=== PATIENT | female | born 1955 | race Caucasian/White ===

== ENCOUNTER 2020-02-22 16:38 | Emergency (ER) | payer MEDICARE ==
[~2020-02-22] VITALS: Ht 162 cm; Wt 50.0 kg
--- NOTE | 2020-02-22 17:13 | Diagnostic Imaging Report ---
PROCEDURE: CT head without contrast. TECHNIQUE: Multiple contiguous axial images were obtained through the brain without the use of intravenous contrast. Auto Exposure Controls were utilized during the CT exam to meet ALARA standards for radiation dose reduction. INDICATION: Dizziness, right-sided weakness, possible stroke. FINDINGS: There is some periventricular and subcortical bifrontal white matter hypodensity, relatively symmetric and likely chronic small vessel disease. There is no sulcal effacement. The basilar cisterns are patent. No findings suggestive of acute cortical edema. No evidence for elevated pressures. There is no mass or mass effect. There is some motion degradation artifact, limiting exam sensitivity but an acute-appearing abnormality is not apparent. No evidence for elevation of the intracerebral pressures. There are no abnormal extra-axial fluid collections. There is no hemorrhage. IMPRESSION: Likely chronic white matter small vessel disease. No cortical edema, hemorrhage, mass effect, hydrocephalus, or acute-appearing abnormalities. Dictated by: Dictated on workstation # [id number]
[2020-02-22 17:16] LABS: HEMATOCRIT 36 % (35-52); MEAN CORPUSCULAR HEMOGLOBIN 29 PG (25-34); MEAN CORPUSCULAR HGB CONC 34 G/DL (32-36); MEAN CORPUSCULAR VOLUME 87 FL (80-99); WHITE BLOOD COUNT 6.5 10^3/uL (4.3-11.0)
[2020-02-22 17:17] LABS: BASOPHILS % (AUTO) 0 % (0-10); EOSINOPHILS # (AUTO) 0.1 10^3/uL (0.0-0.3); EOSINOPHILS % (AUTO) 2 % (0-10); LYMPHOCYTES # (AUTO) 1.4 X 10^3 (1.0-4.0); LYMPHOCYTES % (AUTO) 22 % (12-44); MEAN PLATELET VOLUME 10.1 FL (7.4-10.4); MONOCYTES # (AUTO) 0.4 X 10^3 (0.0-1.0); MONOCYTES % (AUTO) 6 % (0-12); NEUTROPHILS # (AUTO) 4.5 X 10^3 (1.8-7.8); NEUTROPHILS % (AUTO) 69 % (42-75); PLATELET COUNT 276 10^3/uL (130-400)
--- NOTE | 2020-02-22 17:18 | Diagnostic Imaging Report ---
INDICATION: Dizziness and weakness. COMPARISON: No comparison is available. FINDINGS: There are prominent interstitial changes within the lungs. Correlate for smoking history. There is no alveolar consolidation. There is no effusion. There is no pneumothorax. Heart size and mediastinal contours appear appropriate without evidence of current failure. There is no acute or suspicious osseous abnormality evident. IMPRESSION: Apparent background features of interstitial lung disease. Correlation as a smoking history appreciated. There are no plain film findings of an acute superimposed cardiopulmonary process. Dictated by: Dictated on workstation # [id number]
[2020-02-22 17:28] LABS: ALANINE AMINOTRANSFERASE 18 U/L (0-55); ALBUMIN 4.6 GM/DL (3.2-4.5); ALKALINE PHOSPHATASE 133 U/L (40-136); BUN/CREATININE RATIO 11; CALCIUM 9.3 MG/DL (8.5-10.1); CARBON DIOXIDE 22 MMOL/L (21-32); CHLORIDE 94 MMOL/L (98-107); CREATININE SERUM 0.94 MG/DL (0.60-1.30); GFR ESTIMATED 60; GLUCOSE 147 MG/DL (70-105); POTASSIUM 3.4 MMOL/L (3.6-5.0); SODIUM 131 MMOL/L (135-145); TOTAL PROTEIN 7.1 GM/DL (6.4-8.2)
[2020-02-22 17:32] LABS: INR 0.9 (0.8-1.4); PROTHROMBIN TIME PATIENT 12.8 SEC (12.2-14.7)
--- NOTE | 2020-02-22 18:09 | ED General ---
General Chief Complaint: Neurological Problems Stated Complaint: FALL/DIZZY/STROKE SYMPTOMS Nursing Triage Note: PT HAD SOME DIZZINESS AND RIGHT SIDED WEAKNESS AFTER GETTING AN INJECTION FOR NAUSEA AT HOME FROM HER . THE SYMPTOMS HAD MOSLY RESOLVED BY THE TIME THE PT ARRIVED BY EMS. PT ONLY HAS A VERY SLIGHT RIGHT SIDE DROOPINESS UNKNOWN IF NEW OR NOT AT THIS TIME. PT ALERT AND ANSWERING ALL QUESTIONS APPROPRIATELY. Nursing Sepsis Screen: No Definite Risk Source of Information: Patient History of Present Illness Date Seen by Provider: Feb 22, 2020 Time Seen by Provider: 16:45 Initial Comments Patient is a 64-year-old female who presents with acute onset headache, dizziness, nausea and right-sided weakness. Symptom onset was 20 minutes prior to ED arrival. Patient states high pain, nausea has since resolved. On EMS arrival, the patient was noted be hypertensive 230s over 120s. Patient states she does not take any blood pressure medications and does not have a history of hypertension. Currently denies any extremity weakness loss of sensation, change in vision, only speaking or impaired K. No other acute symptoms or complaints. Patient is not on anticoagulation therapy. Timing/Duration: 1/2 Hour Severity: Moderate Modifying Factors: improves with Medication Associated Systoms: Denies Symptoms Allergies and Home Medications Allergies Coded Allergies: penicillin G (Verified Allergy, Unknown, 02/22/20) Patient Home Medication List Home Medication List Reviewed: Yes Review of Systems Review of Systems Constitutional: see HPI Respiratory: see HPI Cardiovascular: see HPI Gastrointestinal: see HPI Musculoskeletal: see HPI Skin: see HPI Psychiatric/Neurological: See HPI Hematologic/Lymphatic: See HPI Immunological/Allergic: see HPI All Other Systems Reviewed Negative Unless Noted: Yes Past Nlromun-Kwmwol-Xhgcfo Hx Past Med/Social Hx: Reviewed Nursing Past Med/Soc Hx Patient Social History Alcohol Use: Denies Use Recreational Drug Use: No Smoking Status: Never a Smoker 2nd Hand Smoke Exposure: No Recent Foreign Travel: No Contact w/Someone Who Travel: No Recent Infectious Disease Expo: No Recent Hopitalizations: No Physical Abuse: No Sexual Abuse: No Mistreated: No Fear: No Seasonal Allergies Seasonal Allergies: Yes Past Medical History Surgeries: Yes (RT KNEE SX, D & C) Orthopedic Respiratory: No Cardiac: No Neurological: No Genitourinary: No Gastrointestinal: No Musculoskeletal: No Endocrine: No HEENT: No Cancer: No Psychosocial: No Integumentary: No Blood Disorders: No Physical Exam Vital Signs Vital Signs - First Documented 02/22/20 16:45 Temp 36.2 Pulse 108 Resp 18 B/P (MAP) 216/96 (136) Pulse Ox 97 O2 Delivery Room Air Capillary Refill : Less Than 3 Seconds Height, Weight, BMI Height: '" Weight: lbs. oz. kg; 19.00 BMI Method: General Appearance: WD/WN, Anxious Eyes: Bilateral Eye Normal Inspection HEENT: PERRL/EOMI, Normal ENT Inspection, Pharynx Normal, Moist Mucous Membranes Neck: Normal Inspection, Non Tender, Supple Respiratory: Lungs Clear, Normal Breath Sounds Cardiovascular: Regular Rate, Rhythm Gastrointestinal: Non Tender, Soft Back: Normal Inspection Neurologic/Psychiatric: Alert, Oriented x3, No Motor/Sensory Deficits, Normal Mood/Affect, Other (possible right facial droop) Skin: Normal Color, Warm/Dry Lymphatic: No Adenopathy Focused Exam Sepsis Stage: Ruled Out Progress/Results/Core Measures Suspected Sepsis Recent Fever Within 48 Hours: No Infection Criteria Present: None New/Unexplained Altered Menta: No Sepsis Screen: No Definite Risk SIRS Temperature: Pulse: 108 Respiratory Rate: 18 Laboratory Tests 02/22/20 17:00: White Blood Count 6.5 Blood Pressure 216 /96 Mean: 136 Laboratory Tests 02/22/20 17:00: Creatinine 0.94, INR Comment 0.9, Platelet Count 276, Total Bilirubin 1.0 Results/Orders Lab Results Laboratory Tests Test 02/22/20 17:00 Range/Units White Blood Count 6.5 4.3-11.0 10^3/uL Red Blood Count 4.10 L 4.35-5.85 10^6/uL Hemoglobin 12.0 11.5-16.0 G/DL Hematocrit 36 35-52 % Mean Corpuscular Volume 87 80-99 FL Mean Corpuscular Hemoglobin 29 25-34 PG Mean Corpuscular Hemoglobin Concent 34 32-36 G/DL Red Cell Distribution Width 12.5 10.0-14.5 % Platelet Count 276 130-400 10^3/uL Mean Platelet Volume 10.1 7.4-10.4 FL Immature Granulocyte % (Auto) 0 % Neutrophils (%) (Auto) 69 42-75 % Lymphocytes (%) (Auto) 22 12-44 % Monocytes (%) (Auto) 6 0-12 % Eosinophils (%) (Auto) 2 0-10 % Basophils (%) (Auto) 0 0-10 % Neutrophils # (Auto) 4.5 1.8-7.8 X 10^3 Lymphocytes # (Auto) 1.4 1.0-4.0 X 10^3 Monocytes # (Auto) 0.4 0.0-1.0 X 10^3 Eosinophils # (Auto) 0.1 0.0-0.3 10^3/uL Basophils # (Auto) 0.0 0.0-0.1 10^3/uL Immature Granulocyte # (Auto) 0.0 0.0-0.1 10^3/uL Prothrombin Time 12.8 12.2-14.7 SEC INR Comment 0.9 0.8-1.4 Activated Partial Thromboplast Time 24 24-35 SEC Sodium Level 131 L 135-145 MMOL/L Potassium Level 3.4 L 3.6-5.0 MMOL/L Chloride Level 94 L 98-107 MMOL/L Carbon Dioxide Level 22 21-32 MMOL/L Anion Gap 15 H 5-14 MMOL/L Blood Urea Nitrogen 10 7-18 MG/DL Creatinine 0.94 0.60-1.30 MG/DL Estimat Glomerular Filtration Rate 60 BUN/Creatinine Ratio 11 Glucose Level 147 H 70-105 MG/DL Calcium Level 9.3 8.5-10.1 MG/DL Corrected Calcium 8.5-10.1 MG/DL Total Bilirubin 1.0 0.1-1.0 MG/DL Aspartate Amino Transf (AST/SGOT) 22 5-34 U/L Alanine Aminotransferase (ALT/SGPT) 18 0-55 U/L Alkaline Phosphatase 133 40-136 U/L Total Protein 7.1 6.4-8.2 GM/DL Albumin 4.6 H 3.2-4.5 GM/DL My Orders Orders - RICHARD RASMUSSEN DO Ct Head Wo (02/22/20 16:42) Chest 1 View Ap/Pa Only (02/22/20 16:54) Cbc With Automated Diff (02/22/20 16:54) Comprehensive Metabolic Panel (02/22/20 16:54) Protime With Inr (02/22/20 16:54) Partial Thromboplastin Time (02/22/20 16:54) Ekg Tracing (02/22/20 16:54) Ct Angio Head/Neck (02/22/20 18:28) Iohexol Injection (Omnipaque 350 Mg/Ml 1 (02/22/20 18:45) Received Contrast (Hold Metformin- Contr (02/22/20 18:45) Sodium Chloride Flush (Catheter Flush Sy (02/22/20 18:45) Ns (Ivpb) (Sodium Chloride 0.9% Ivpb Bag (02/22/20 18:45) Alteplase (Activase) (Activase Injection (02/22/20 19:00) Post Thrombolytic Adminstratio (02/22/20 18:50) Alteplase (Activase) (Activase Injection (02/22/20 18:49) Ns (Ivpb) (Sodium C... W/Nicardipine Iv (02/22/20 19:00) Nicardipine Iv For Drip (Cardene I.V. (O (02/22/20 19:11) Ns (Ivpb) (Sodium Chloride 0.9%) (02/22/20 19:12) Medications Given in ED Current Medications Medications Dose Ordered Sig/Mathew Route Start Time Stop Time Status Last Admin Dose Admin Alteplase, Recombinant (0.9mg/ kg-max 90mg) with ... ONCE ONCE IV 02/22/20 19:00 02/22/20 19:01 DC 02/22/20 19:14 43.4 MG Vital Signs/I&O 02/22/20 16:45 Temp 36.2 Pulse 108 Resp 18 B/P (MAP) 216/96 (136) Pulse Ox 97 O2 Delivery Room Air Capillary Refill : Less Than 3 Seconds Blood Pressure Mean: 136 Departure Communication (Admissions) NIH stroke score of 2 per nurse stroke assessment. Symptoms resolved, blood pressure improved with clonidine. No chest pain palpitation shortness of breath. Recurrence of stroke symptoms to the ED. Patient with facial paralysis, aphasia and dense right upper and lower extremity weakness. TPA given. Cardene drip started for blood pressure control. Neuro symptoms improved. CTA angiio ordered and pending. Case discussed with Dr. OTT neurologist who accepts patient to neuro ICU Hospital admission recommended for further evaluation and treatment. Impression Primary Impression: CVA (cerebral vascular accident) Disposition: ADMITTED INPATIENT Condition: RICHARD Bruno DO Feb 22, 2020 18:09
[2020-02-22] MEDS ORDERED: HOLD METFORMIN - RECEIVED CONTRAST 20 ML VIAL IV SCH (18:45)
[2020-02-22] MEDS ORDERED: IOHEXOL 350 MG/ML 100 ML (OMNIPAQUE 350) VIAL IV ONE (18:45)
[2020-02-22] MEDS ORDERED: CATHETER FLUSH 10 ML SYR IV PRN (18:45)
[2020-02-22] MEDS ORDERED: NS 100 ML (IVPB) BAG IV ONE (18:45)
[2020-02-22] MEDS ORDERED: ALTEPLASE 100 MG/VIAL (ACTIVASE) ONE (18:49)
[2020-02-22] MEDS ORDERED: niCARdipine IV 50 MG in NS (IVPB) 230 ML IV SCH (19:00)
[2020-02-22] MEDS ORDERED: ALTEPLASE 100 MG/VIAL (ACTIVASE) IV ONE (19:00)
[2020-02-22] MEDS ORDERED: niCARdipine IV FOR DRIP 50 MG KIT ONE (19:11)
[2020-02-22] MEDS ORDERED: NS (IVPB) 250 ML ONE (19:12)
[2020-02-22 19:26] VITALS: BP 188/62
--- NOTE | 2020-02-22 20:06 | Diagnostic Imaging Report ---
PROCEDURE: CT angiography of the head and CT angiography of the neck with and without contrast. TECHNIQUE: Contiguous noncontrast images were obtained from the skull base through the vertex. After intravenous contrast administration, helical CT angiography of the neck was performed. Source data was reformatted into 3D MIP projections. Delayed post contrast acquisition was also obtained. Auto Exposure Controls were utilized during the CT exam to meet ALARA standards for radiation dose reduction. INDICATION: Cannot move right arm The previous CT head exam performed earlier today at 4:50 PM failed to show any sign of an acute intracranial abnormality. On this exam, there is no evidence for a large vessel occlusion. There is no sign of an aneurysm of the [place] either. The images through the neck do show that there is fairly severe hard and soft plaque formation involving the carotid bifurcation on the left and at least moderate hard and soft plaque formation involving the carotid bifurcation on the right. There is no hemodynamically significant stenosis identified however. Both vertebral arteries were opacified. There is no mass or adenopathy involving the neck. The thyroid gland is generally unremarkable. The lung apices are clear. The bone windows show no sign of a fracture or of a destructive lesion. There is fairly severe degenerative disc and bony disease at C5-C6 however. IMPRESSION: 1. There is no evidence for a large vessel occlusion or for an aneurysm of the [place]. If clinical concern regarding an acute abnormality persists, then MRI would be recommended for further study. 2. There is atherosclerotic disease involving both carotid bifurcations, particularly on the left. However, there is no hemodynamic significant stenosis identified. 3. Both vertebral arteries were opacified. There is no sign of an injury to either vertebral artery. Dictated by: Dictated on workstation # [id number]
== END 2020-02-22 19:39 | disposition other institution (70) ==
LOC: ER FS 16:40
DX: I63.9 Cerebral infarction, unspecified (principal); F41.9 Anxiety disorder, unspecified; Z88.0 Allergy status to penicillin
CPT/HCPCS: 36415; 70450; 70496; 70498; 71045; 80053; 85025; 85610; 85730; 92977; 93005; 99291

== ENCOUNTER → 2020-06-19 | Outpatient (CLI) | payer MEDICARE ==
--- NOTE | 2020-06-19 16:52 | Diagnostic Imaging Report ---
PROCEDURE: US carotid duplex, bilateral. TECHNIQUE: Multiple real-time grayscale images were obtained over the carotid arteries in various projections, bilaterally. Additional spectral analysis and color Doppler duplex images were also obtained. INDICATION: Dizziness. Parameters based on the consensus panel Anderson-Scale and Doppler ultrasound criteria published January 2003, Radiology, Volume 229. DOPPLER (peak systolic velocity M/S Right Left CCA 1.07 1.07 ICA Proximal 0.72 0.84 ICA Mid 0.63 0.79 ICA Distal 0.52 0.83 RATIO 0.7 0.8 ECA 0.84 1.07 VERT 0.34 0.55 There is scattered atherosclerotic plaque within the bilateral carotid bulbs and bifurcations extending into the internal and external carotid arteries. Waveforms are normal. Normal antegrade flow within both vertebral arteries. IMPRESSION: 1. Atherosclerosis with less than 50% stenosis of the bilateral internal carotid arteries by velocity and ratio criteria. Dictated by: Dictated on workstation # [id number]
== END ==
LOC: RAD FS 11:39
DX: I63.9 Cerebral infarction, unspecified (principal)
CPT/HCPCS: 93880

== ENCOUNTER → 2021-09-12 | Outpatient (CLI) | payer MEDICARE ==
[~2021-09-12] MED LIST: CATHETER FLUSH 10 ML SYR IVP PRN; REGADENOSON 0.4 MG/5 ML SYR (LEXISCAN) IV ONE
[2021-09-12 13:08] VITALS: BP 159/93
--- NOTE | 2021-09-17 08:50 | Cardiology Stress Test Report ---
Stress Test Report Date of Procedure/Referring: Date of Procedure: Sep 12, 2021 PCP No,Local Physician Admitting Physician Admitting Physician: Attending Physician: Patricia Rodriguez MD Indications: CP Baseline Heart Rate: 89 Baseline Blood Pressure: Blood Pressure Systolic: 159 Blood Pressure Diastolic: 93 Baseline Vitals Vital Signs Date Time Temp Pulse Resp B/P (MAP) Pulse Ox O2 Delivery O2 Flow Rate FiO2 09/12/21 13:08 89 159/93 (115) Baseline EKG: Baseline EKG: NSR Summary After explaining the procedure to the patient, she signed a consent and then brought to the stress nuclear laboratory. Patient received 0.4 mg Lexiscan for stress test, ECG, heart rate and blood pressure were monitored continuously. Resting and stress dose of radio tracer were injected, imaging was acquired and reviewed in short axis, horizontal long axis and vertical long axis views. TID: 0.91 SSS: 2 SDS: 2 EF: 76 1. Patient tolerated Lexiscan well 2. No significant ischemia or infarction on SPECT images 3. Normal left ventricular size, ejection fraction 76% PATRICIA RODRIGUEZ MD Sep 17, 2021 08:50
== END ==
LOC: CARD 12:15
PROVIDERS: ATTEND Internal Medicine Cardiovascular Disease
DX: I10 Essential (primary) hypertension (principal); I25.10 Atherosclerotic heart disease of native coronary artery without angina pectoris
CPT/HCPCS: 78452; 93017; A9502

== ENCOUNTER → 2021-09-13 | Outpatient (CLI) | payer MEDICARE | LOC: CARDFS 12:37 | PROVIDERS: ATTEND Internal Medicine Cardiovascular Disease | DX: I07.1 Rheumatic tricuspid insufficiency (principal); I11.9 Hypertensive heart disease without heart failure; I25.10 Atherosclerotic heart disease of native coronary artery without angina pectoris | CPT/HCPCS: 93306 ==

== ENCOUNTER → 2021-11-23 | Outpatient (CLI) | payer MEDICARE ==
[2021-11-23 09:47] LABS: ALBUMIN 4.5 GM/DL (3.2-4.5); BILIRUBIN,TOTAL 1.2 MG/DL (0.1-1.0); CALCIUM 9.8 MG/DL (8.5-10.1); CREATININE SERUM 0.96 MG/DL (0.60-1.30); POTASSIUM 4.1 MMOL/L (3.6-5.0); TOTAL PROTEIN 7.2 GM/DL (6.4-8.2)
== END ==
LOC: LAB FS 08:27
PROVIDERS: ATTEND Internal Medicine Cardiovascular Disease
DX: I65.23 Occlusion and stenosis of bilateral carotid arteries (principal); I25.10 Atherosclerotic heart disease of native coronary artery without angina pectoris; I10 Essential (primary) hypertension; E78.2 Mixed hyperlipidemia
CPT/HCPCS: 36415; 80053; 80061